=== PATIENT | female | born 1950 | race American Indian/Alaskan Native ===

== ENCOUNTER 2016-10-18 02:59 | Emergency (ER) | payer SELFPAY ==
[2016-10-18 03:36] VITALS: BP 120/87
[2016-10-18 04:12] LABS: Basophils % (Auto) 0.9 % (0.0-1.8); Eosinophils % (Auto) 3.1 % (0.0-4.3); Hematocrit 40.5 % (30.3-42.9); Hemoglobin 13.7 gm/dl (10.1-14.3); Mean Corpuscular HGB Conc 34 % (30-34); Mean Corpuscular Hemoglobin 30 pg (28-32); Mean Corpuscular Volume 90 fl (79-97); Platelet Count 304 K/mm3 (140-440); Red Cell Distribution Width 13.6 % (13.2-15.2); White Blood Count 5.5 K/mm3 (4.5-11.0)
[2016-10-18 05:00] LABS: INR 0.93 (0.87-1.13)
[2016-10-18 05:01] LABS: Partial Thromboplastin Time 27.4 Sec. (24.2-36.6)
[2016-10-18 05:23] LABS: Anion Gap 19 mmol/L; BUN/Creatinine Ratio 11.25; Blood Urea Nitrogen 9 mg/dL (7-17); Calcium 9.9 mg/dL (8.4-10.2); Carbon Dioxide 24 mmol/L (22-30); Chloride 97.6 mmol/L (98-107); Glucose 125 mg/dL (65-100); Potassium 3.8 mmol/L (3.6-5.0); Sodium 137 mmol/L (137-145)
--- NOTE | 2016-10-19 00:06 | ED Elopement Review ---
ED Pt Elopement review - Results review Lab results: Laboratory Tests 10/18/16 10/18/16 10/18/16 03:46 03:46 03:46 WBC 5.5 RBC 4.50 Hgb 13.7 Hct 40.5 MCV 90 MCH 30 MCHC 34 RDW 13.6 Plt Count 304 Lymph % (Auto) 43.4 H Weston % (Auto) 6.0 Eos % (Auto) 3.1 Baso % (Auto) 0.9 Lymph # 2.4 Weston # 0.3 Eos # 0.2 Baso # 0.1 Seg Neutrophils % 46.6 Seg Neutrophils # 2.6 PT 12.4 INR 0.93 APTT 27.4 Sodium 137 Potassium 3.8 Chloride 97.6 L Carbon Dioxide 24 Anion Gap 19 BUN 9 Creatinine 0.8 Estimated GFR > 60 BUN/Creatinine Ratio 11.25 Glucose 125 H Calcium 9.9 Troponin T < 0.010 - Call Back decision Pt Call Back Decision: No action required
== END 2016-10-18 04:50 | disposition left against medical advice (07) ==
LOC: ED 02:59
DX: M79.605 Pain in left leg (principal); R00.2 Palpitations; Z53.21 Procedure and treatment not carried out due to patient leaving prior to being seen by health care provider
CPT/HCPCS: 36415; 80048; 84484; 85025; 85610; 85730; 93005; 93010